=== PATIENT | female | born 1935 | race Caucasian/White ===

== ENCOUNTER 2017-11-21 13:58 | Inpatient (IN) | payer OTHER ==
[~2017-11-21] VITALS: Ht 154.9 cm; Wt 66.3 kg
[~2017-11-21 13:58] MED LIST: ACETAZOLAMIDE250 M1 PO; ACETAZOLAMIDE500 M2 PO; AMBIEN5 M1 PO; AMLODIPINE BESY10 M1 PO; ASPIRIN EC81 M1 PO; AZITHROMYCIN500 M3 PO; BACTRIM DS TAB1 EACH PO; CELEXA10 M1 PO; DAILY MULTIPLE1 EACH PO; DIAMOX SEQUELS500 MG PO; GLIPIZIDE ER2.5 M1 PO; GLIPIZIDE ER5 M1 PO; GUAIFENESIN ER600 MG PO; HYDROCHLOROTHIA25 M1 PO; IBUPROFEN600 M1 PO; ISOPTO CARPINE15 M1 OU; LEVOTHYROXINE50 MCG PO; LISINOPRIL20 M1 PO; MACRODANTIN100 M1 PO; METFORMIN HCL500 M3 PO; MONTELUKAST SOD10 M1 PO; PILOCARPINE HCL15 M3 IO; PREDNISONE10 M2 PO; PROAIR HFA8.5 GM INH; SEROQUEL25 M1 PO; SILENOR3 M1 PO; SINGULAIR10 M1 PO; SPIRIVA18 MCG INH; SULFAMETHOXAZO1 EAC1 PO; SYNTHROID50 MCG PO
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
[2017-11-21 14:52] LABS: ABSOLUTE BASOPHIL COUNT 0 /CUMM (0.0-0.2); ABSOLUTE EOSINOPHIL COUNT 0.1 /CUMM (0.0-0.7); ABSOLUTE GRANULOCYTE CT 10.1 /CUMM (1.4-6.5); ABSOLUTE LYMPH COUNT 1.4 /CUMM (1.2-3.4); ABSOLUTE MONOCYTE COUNT 0.7 /CUMM (0.10-0.60); BASOPHIL % 0.2 % (0.0-2.0); EOSINOPHIL % 1.2 % (0-5); GRANULOCYTE % 82.2 % (42.2-75.2); HEMATOCRIT 37.4 % (37-47); MEAN CORPUSCULAR HGB 28.6 PG (27.0-31.0); MEAN CORPUSCULAR VOLUME 86.6 FL (81.0-99.0); MEAN PLATELET VOLUME 6.5 FL (7.4-10.4); PLATELET COUNT 792 /CUMM (130-400); RBC DISTRIBUTION WIDTH 16.1 % (11.5-14.5); RED BLOOD CELL CT 4.32 /CUMM (4.20-5.40); WHITE BLOOD CELL COUNT 12.3 /CUMM (4.8-10.8)
--- NOTE | 2017-11-21 15:21 | RADIOLOGY REPORT ---
EXAMINATION: XR CHEST CLINICAL INFORMATION: Altered mental status. COMPARISON: 12/30/2016 TECHNIQUE: 2 views of the chest were obtained. FINDINGS: The cardiomediastinal silhouette is stable. There is a patchy airspace opacity in the right middle lobe and peripheral right upper lobe. Streaky opacity in the left lung base otherwise the left lung is clear. No pneumothorax. No acute osseous abnormality. Exaggerated thoracic kyphosis. There are age-indeterminate mild compression deformities in the midthoracic spine. IMPRESSION: Patchy airspace opacities in the right middle lobe and peripheral right upper lobe may reflect pneumonia in the right clinical setting. Exaggerated kyphosis in the midthoracic spine with mild age indeterminate compression deformities in the midthoracic spine.
--- NOTE | 2017-11-21 15:46 | CT SCAN REPORT ---
EXAMINATION: CT HEAD WITHOUT CONTRAST CLINICAL INFORMATION: Altered mental status. Assess for cranial hemorrhage or mass lesion. COMPARISON: None. TECHNIQUE: Contiguous axial imaging was performed from the skull base to vertex without intravenous administration of contrast. DLP: 766.54 mGy-cm FINDINGS: There is no evidence of acute intracranial hemorrhage or territorial infarction. No abnormal mass effect or midline shift is seen. Calvillo to white matter differentiation is well preserved. No extra-axial fluid collections are identified. The ventricles and sulci are commensurately prominent consistent with moderate diffuse volume loss. There are areas of low attenuation in the periventricular and subcortical white matter consistent with chronic microvascular ischemic changes. There are bilateral basal ganglia lacunar infarcts. There have been bilateral lens extractions. There are degenerative changes of the bilateral temporomandibular joints. There are no acute osseous findings. The soft tissues are unremarkable. There are atheromatous calcifications of the cavernous internal carotid arteries. There is mild mucoperiosteal thickening in the medial left frontal sinus. The mastoid air cells are well-aerated. IMPRESSION: 1. There are no acute bleeds or territorial infarcts. No masses are demonstrated. 2. There is diffuse volume loss and there are chronic microvascular ischemic changes.
[2017-11-21] MEDS ORDERED: QUETIAPINE FUMA25 M1 PO (18:20)
[2017-11-21] MEDS ORDERED: VALPROIC A250 MG/51 PO (18:20)
[2017-11-21] MEDS ORDERED: CITALOPRAM HBR10 MG PO (18:20)
[2017-11-21] MEDS ORDERED: MIRTAZAPINE15 M2 PO (18:20)
[2017-11-21] MEDS ORDERED: LEVOXYL50 MCG PO (18:21)
[2017-11-21] MEDS ORDERED: PROAIR HFA8.5 GM INH (18:22)
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
[2017-11-21] MEDS ORDERED: VITAMIN D1000 UNIT PO (20:56)
--- NOTE | 2017-11-21 22:27 | Admission Certification ---
Admission Certification Certification Statement - As attending physician, I certify that at the time of - admission, based on clinical presentation, severity of - symptoms, need for further diagnostic testing and - therapeutic interventions, and risk of adverse outcomes - without in-hospital treatment, in my clinical assessment, - this patient requires an acute hospital stay for a minimum - of two nights or longer. I have also considered psychsocial - factors such as support system, advanced age, financial - issues, cognitive issues, and failed out-patient treatments, - past re-admission history, safety of patient, and lack of - compliance as applicable. Specific rationale supporting this admission is: The patient presents with acute mental status changes (combative) most c/w toxic metabolic encephalopathy due to UTI (GNRs in urine and leukocytosis). Needs admission for IV antibiotics (Ceftriaxone), cultures, and psych evaluation and follow. business services sales representative consult.
[2017-11-21 23:42] VITALS: BP 120/60
[2017-11-22 05:57] VITALS: BP 100/62
[2017-11-22 07:40] LABS: ABSOLUTE BASOPHIL COUNT 0 /CUMM (0.0-0.2); ABSOLUTE EOSINOPHIL COUNT 0.2 /CUMM (0.0-0.7); ABSOLUTE GRANULOCYTE CT 6.3 /CUMM (1.4-6.5); ABSOLUTE LYMPH COUNT 1.6 /CUMM (1.2-3.4); ABSOLUTE MONOCYTE COUNT 0.6 /CUMM (0.10-0.60); BASOPHIL % 0 % (0.0-2.0); EOSINOPHIL % 1.8 % (0-5); GRANULOCYTE % 72.3 % (42.2-75.2); HEMATOCRIT 32.5 % (37-47); MEAN CORPUSCULAR HGB 28.4 PG (27.0-31.0); MEAN CORPUSCULAR HGB CONC 33.2 G/DL (33.0-37.0); MEAN CORPUSCULAR VOLUME 85.7 FL (81.0-99.0); MEAN PLATELET VOLUME 6.8 FL (7.4-10.4); PLATELET COUNT 576 /CUMM (130-400); RBC DISTRIBUTION WIDTH 16.5 % (11.5-14.5); WHITE BLOOD CELL COUNT 8.6 /CUMM (4.8-10.8)
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
[2017-11-22 15:28] VITALS: BP 100/60
[2017-11-22 21:46] VITALS: BP 144/62
[2017-11-23 06:39] VITALS: BP 140/68
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
[2017-11-23 08:00] LABS: ABSOLUTE BASOPHIL COUNT 0 /CUMM (0.0-0.2); ABSOLUTE EOSINOPHIL COUNT 0.2 /CUMM (0.0-0.7); ABSOLUTE GRANULOCYTE CT 6.2 /CUMM (1.4-6.5); ABSOLUTE LYMPH COUNT 1.7 /CUMM (1.2-3.4); ABSOLUTE MONOCYTE COUNT 0.6 /CUMM (0.10-0.60); BASOPHIL % 0.2 % (0.0-2.0); EOSINOPHIL % 1.9 % (0-5); GRANULOCYTE % 71.4 % (42.2-75.2); HEMATOCRIT 35.9 % (37-47); MEAN CORPUSCULAR HGB 28.6 PG (27.0-31.0); MEAN CORPUSCULAR HGB CONC 32.9 G/DL (33.0-37.0); MEAN PLATELET VOLUME 7.1 FL (7.4-10.4); PLATELET COUNT 597 /CUMM (130-400); RBC DISTRIBUTION WIDTH 16.8 % (11.5-14.5); RED BLOOD CELL CT 4.13 /CUMM (4.20-5.40); WHITE BLOOD CELL COUNT 8.6 /CUMM (4.8-10.8)
[2017-11-23 14:43] VITALS: BP 130/65
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
[2017-11-23 22:22] VITALS: BP 120/70
[2017-11-24 06:07] VITALS: BP 122/64
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
[2017-11-24] MEDS ORDERED: KEFLEX250 M1 PO ×2 (11:57→15:00)
--- NOTE | 2017-11-24 11:58 | Patient Discharge Instructions ---
Discharge Instructions General Discharge Information You were seen/treated for: UTI Special Instructions: 1. Please follow up with pcp in one week. 2. Please follow up with your psychiatrist within a month of your discharge. Diet Continue normal diet: Yes Activity Full Activity/No Limits: Yes Acute Coronary Syndrome Inclusion Criteria At DC or during hospital stay patient has or had the following: ACS DIAGNOSIS No Discharge Core Measures Meds if any: Prescribed or Continued at Discharge Meds if any: NOT Prescribed or Continued at Discharge Congestive Heart Failure Inclusion Criteria At DC or during hospital stay patient has or had the following: CHF DIAGNOSIS No Discharge Core Measures Meds if any: Prescribed or Continued at Discharge Meds if any: NOT Prescribed or Continued at Discharge Cerebrovascular accident Inclusion Criteria At DC or during hospital stay patient has or had the following: CVA/TIA Diagnosis No Discharge Core Measures Meds if any: Prescribed or Continued at Discharge Meds if any: NOT Prescribed or Continued at Discharge Venous thromboembolism Inclusion Criteria VTE Diagnosis No VTE Type NONE VTE Confirmed by (Test) NONE Discharge Core Measures - Per Current guidelines, there needs to be overlap - treatment for the first 5 days of Warfarin therapy. - If discharged on Warfarin prior to 5 days of - overlap therapy, the patient will need to be - assessed for post discharge needs including - *Post discharge parental anticoagulation - *Warfarin and/or parental anticoagulation education - *Follow up date to check INR post discharge At least 5 days overlap therapy as Inpatient No Meds if any: Prescribed or Continued at Discharge Note: Overlap Therapy is Warfarin and Anticoagulant Meds if any: NOT Prescribed or Continued at Discharge
[2017-11-24 14:01] VITALS: BP 124/52
[2017-11-24 21:32] VITALS: BP 132/66
[2017-11-25 05:48] VITALS: BP 120/60
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
[2017-11-25 21:48] VITALS: BP 122/64
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
[2017-11-26] MEDS ORDERED: SEROQUEL50 M1 PO (11:41)
--- NOTE | 2017-11-26 12:15 | Discharge Summary ---
Visit Information Visit Dates Admission Date: 11/21/17 Discharge Date: 11/26/2017 Hospital Course Course Attending Physician: Eugene Harris MD Primary Care Physician: James HERNANDEZ,Kenyon Lamas Hospital Course: 82 yo female with h/o COPD, DM2, HTN, afib, dementia, h/o adjustment disorder/ depression and hypothyroidism who presented in the ED with mental status changes (combative at home). In the ED the patient expressed paranoid ideation. She was noted to have some pyuria and has a h/o similar mental status changes with prior infection. In the ED there was a question of an infiltrate on CXR, however the patient has no change in pulmonary symptoms (has mild chronic cough). She denied any fever, chills, dyspnea, chest pain, palpitations, or abdominal pain. Did have temp of 99.0 in ED. Physical Exam: VS: T 99.0, P 89, R 18, BP 174/84, PO 95% RA HEENT: eyes- PERRLA, EOMI klaudia- dry mucosa Neck: no JVD/bruits Chest: mild diminished breath sounds, clear Cor: RRR nl S1, S2 w/o murm Abd: BS+, soft, NT, - masses or HSM, - CVAT Ext: no edema, pulses 2+ Neuro: alert, oriented, paranoid ideations, non-focal exam (gait not tested) Patient was admitted to general medicine floor and the following issues below were addressed: #Acute Toxic Metabolic Encephalopathy- patient with combative behavior at home prior to presentation. Has baseline psychiatric issues, however his acute encepaholapthy was most likely related to concurrent UTI with known GNR's in urine (OP culture done). #UTI- growing GNR's in urine and leukocytosis (12.3). Cultures grew E.coli, pt was treated with ceftriaxone 1 g for 6 days. She remained afebrile with no leukocytosis during hospital stay. Stable on discharge date, no additional abx needed. #Chronic psychiatric conditions : Psyc was consulted and her queitapine dose was increased to 50mg po qpm. Allergies: Coded Allergies: Corticosteroids (Glucocorticoids) (Mild, PER DAUGHTER, "NOT SUPPOSED TO TAKE THEM B/C OF HER EYES." 01/04/17) Disposition Summary Disposition Principal Diagnosis: UTI Additional Diagnosis: Acute encephalopathy Discharge Disposition: home or self care Discharge Instructions General Discharge Information Code Status: Full Code Patient's Diet: REGULAR Patient's Activity: TOLERATED Follow-Up Instructions/Appts: F/U WITH PCP WITHIN 1 WEEK Medications at Discharge Discharge Medications: Continue taking these medications: Metformin HCl (Metformin HCl) 500 MG TABLET 1 Tablet ORAL TWICE DAILY Qty = 180 Comments: NOT GIVEN IN HOSPITAL Aspirin (Ecotrin*) 81 MG TABLET.DR 1 Tablet ORAL DAILY Comments: Last Taken: 11/26/17 Time: 839AM Pilocarpine HCl (Isopto Carpine) 2 % DROPS 1 DROP Both Eyes THREE TIMES DAILY Qty = 15 Comments: NOT GIVEN IN HOSPITAL Glipizide (Glipizide ER) 2.5 MG TAB.ER.24 1 Tablet ORAL DAILY Comments: NOT GIVEN IN HOSPITAL Acetazolamide (Acetazolamide) 500 MG CAPSULE.ER 2 Tablet ORAL TAKE AT BEDTIME Comments: not given in hospital Citalopram Hydrobromide (Celexa) 10 MG TABLET 1 Tablet ORAL DAILY Comments: Last Taken: 11/26/17 Time: 839AM Multivitamin (Daily Multiple Vitamin) 1 EACH TABLET 1 Tablet ORAL DAILY Comments: NOT GIVEN IN HOSPITAL Valproic Acid (As Sodium Salt) (Valproic Acid) 250 MG/5 ML SOLUTION 2.5 Milliliters ORAL TWICE DAILY Qty = 150 Comments: NOT GIVEN IN HOSPITAL Mirtazapine (Mirtazapine) 15 MG TABLET 1 Tablet ORAL Every night Qty = 30 Comments: Last Taken: 11/25/17 Time: 750PM Quetiapine Fumarate (Quetiapine Fumarate) 25 MG TABLET 2 Tablet ORAL TAKE AT BEDTIME Qty = 180 Comments: Last Taken: 11/25/17 Time: 751PM Levothyroxine Sodium (Levoxyl) 50 MCG TABLET 1 Tablet ORAL DAILY Comments: Last Taken: 11/26/17 Time: 541AM Albuterol Sulfate (Proair Hfa) 90 MCG HFA.AER.AD 2 Puff Inhale through mouth 4XDAILY Qty = 17 Comments: NOT GIVEN IN HOSPITAL Cholecalciferol (Vitamin D3) (Vitamin D) 1,000 UNIT TABLET 1 Tablet ORAL DAILY Comments: NOT GIVEN IN HOSPITAL Start taking the following new medications: Quetiapine Fumarate (Seroquel) 50 MG TABLET 50 Milligram ORAL Every night Qty = 30 No Refills Comments: Last Taken: 11/25/17 Time: 751PM Copies To: James HERNANDEZ,Kenyon Lamas Attending MD Review Statement Documenting Attending: Eugene Harris MD Other Findings: Patient completed her abx course for UTI. [facility] med[facility] which are changed at [facility]ahrge. Patient plan for discharge to [facility] operator care facility.
[2017-11-26 15:51] VITALS: BP 110/60
[2017-11-26 17:53] VITALS: BP 110/60
== END 2017-11-26 19:20 | DRG 689 ==
LOC: ERH 13:58 → ERHI 18:16 → 2NA 18:16 → ENRESERV 19:30 → ENTRNSPT 20:38 → EDTRNSPTSTS 20:53 → EDTRNSPT 20:53 → 2NA 20:58 → CMPTRNSPT 21:09 → 2NA 11-22 08:49
PROVIDERS: Hospitalist; Physician Assistant; Student in an Organized Health Care Education/Training Program
DX: N39.0 Urinary tract infection, site not specified (principal); G92 Toxic encephalopathy; F05 Delirium due to known physiological condition; F02.81 Dementia in other diseases classified elsewhere, unspecified severity, with behavioral disturbance; I10 Essential (primary) hypertension; E11.9 Type 2 diabetes mellitus without complications; I48.2 Chronic atrial fibrillation; Z79.01 Long term (current) use of anticoagulants; J44.9 Chronic obstructive pulmonary disease, unspecified; F43.21 Adjustment disorder with depressed mood; B96.20 Unspecified Escherichia coli [E. coli] as the cause of diseases classified elsewhere; E03.9 Hypothyroidism, unspecified; H40.9 Unspecified glaucoma; R45.6 Violent behavior; Z88.8 Allergy status to other drugs, medicaments and biological substances; Z79.82 Long term (current) use of aspirin; Z79.51 Long term (current) use of inhaled steroids; G30.9 Alzheimer's disease, unspecified; Z04.71 Encounter for examination and observation following alleged adult physical abuse
CPT/HCPCS: 2NAP; 36592; 71046; 81001; 82436; 87040; 87086; 93005; 93010; J0696; J1650; J1815; J3490